=== PATIENT | female | born 1955 | race Caucasian/White ===

== ENCOUNTER 2021-10-27 09:50 | Emergency (ER) | payer MEDICAID ==
[2021-10-27 11:43] LABS: ESTIMATED GFR 35 (>60)
== END 2021-10-27 13:30 | disposition home or self-care (01) ==
LOC: JP.ED 09:50
DX: K75.4 Autoimmune hepatitis (principal); K74.4 Secondary biliary cirrhosis; I10 Essential (primary) hypertension; Z79.899 Other long term (current) drug therapy
CPT/HCPCS: 36415; 80053; 83605; 85025; 85610; 99283